=== PATIENT | female | born 1975 | race Caucasian/White ===

== ENCOUNTER 2023-09-09 15:26 | Emergency (ER) | payer SELFPAY ==
[~2023-09-09] VITALS: Ht 185.4 cm; Wt 64.9 kg
[~2023-09-09 15:26] MED LIST: ADDERALL 30 MG30 MG PO; LIDOCAINE700 MG; SEROQUEL XR300 MG PO; VALIUM10 MG PO; VYVANSE20 MG PO; Z.0.ULTRAM50 MG; Z.0.VIIBRYD40 MG
[2023-09-09 15:36] VITALS: PULSE 104; RESP 18; TEMP 97.7
[2023-09-09 17:51] LABS: BILIRUBIN,URINE NEGATIVE (NEGATIVE); CLARITY,URINE CLOUDY (CLEAR); COLOR,URINE YELLOW (YELLOW); GLUCOSE, URINE NEGATIVE (NEGATIVE); KETONES,URINE NEGATIVE (NEGATIVE); LEUKOCYTE ESTERASE ,URINE TRACE (NEGATIVE); NITRITE,URINE POSITIVE (NEGATIVE); PH,URINE 6 (5 - 7); PROTEIN,URINE DIPSTICK 1+ (NEGATIVE); URINE UROBILINOGEN 0.2 mg/dL (0.2 - 1)
[2023-09-09 18:07] LABS: BACTERIA,URINE MANY /HPF; EPITHELIAL CELLS,URINE FEW /LPF; TRANSITIONAL EPI CELLS,URINE FEW; WBC,URINE (MAN) >50 /HPF (0-5)
[2023-09-09] MEDS ORDERED: VENTOLIN HFA18 GM INH (19:18)
[2023-09-09] MEDS ORDERED: ULTRAM 50MG50 MG PO (19:18)
[2023-09-09] MEDS ORDERED: TRAMADOL HCL 50 MG TAB ONE (19:26)
[2023-09-09] MEDS: TRAMADOL HCL 50 MG TAB PO STA (19:37)
[2023-09-09 19:48] VITALS: BP 142/68; PULSE 71; RESP 18; TEMP 98.6; O2SAT 95
== END 2023-09-09 19:42 | disposition home or self-care (01) ==
LOC: ER 15:31
DX: T74.11XA Adult physical abuse, confirmed, initial encounter (principal); Y08.89XA Assault by other specified means, initial encounter; S22.42XA Multiple fractures of ribs, left side, initial encounter for closed fracture; S42.009A Fracture of unspecified part of unspecified clavicle, initial encounter for closed fracture; S32.009A Unspecified fracture of unspecified lumbar vertebra, initial encounter for closed fracture; S22.31XA Fracture of one rib, right side, initial encounter for closed fracture
CPT/HCPCS: 70450; 71250; 72125; 72131; 74176; 81001; 81025; 99284